=== PATIENT | female | born 1980 | race American Indian/Alaskan Native ===

== ENCOUNTER 2017-03-15 07:02 | Emergency (ER) | payer OTHER, MEDICAID ==
[2017-03-15] MEDS ORDERED: TORADOL IM ONE (10:44)
[2017-03-15] MEDS ORDERED: TYLENOL PO ONE (10:45)
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
--- NOTE | 2017-03-15 11:49 | XRay Report ---
Left hip 3 views: The History: Left hip pain. Findings: No bony or articular abnormality. No fracture or dislocation. Impression: Essentially negative left hip.
--- NOTE | 2017-03-15 11:50 | XRay Report ---
Bilateral shoulder: History: Shoulder pain. Findings: Arthritic changes are noted at the right and left a.c. joint be more pronounced in the left a.c. joint. Glenohumeral joint appears unremarkable bilaterally. No fracture dislocation or soft tissue calcification. Impression: Arthritic changes right and left a.c. joint.
--- NOTE | 2017-03-15 11:51 | XRay Report ---
Cervical spine 3 views: History: Low back pain. Findings: Normal height of vertebral bodies. Decrease in height of C5-C6. Sclerotic adjacent articular surfaces with peripheral osteophytes suggestive of cervical spondylosis. No fracture. Normal prevertebral soft tissue. Impression: Moderate to severe cervical spondylosis C5-C6.
[2017-03-15 12:00] VITALS: BP 147/97
== END 2017-03-15 12:13 | disposition home or self-care (01) ==
LOC: ED 07:02
DX: G44.309 Post-traumatic headache, unspecified, not intractable (principal); M54.2 Cervicalgia; M25.552 Pain in left hip; M25.511 Pain in right shoulder; F12.10 Cannabis abuse, uncomplicated; Z91.040 Latex allergy status; V43.63XA Car passenger injured in collision with pick-up truck in traffic accident, initial encounter; Y93.89 Activity, other specified; Y92.89 Other specified places as the place of occurrence of the external cause; Y99.8 Other external cause status
CPT/HCPCS: 72040; 73030; 73502; 96372; 99284; J1885